=== PATIENT | female | born 1995 | race American Indian/Alaskan Native ===

== ENCOUNTER 2017-01-11 10:49 | Observation (INO) | payer OTHER ==
[2017-01-11 11:38] VITALS: TEMP 99.9
[2017-01-11 12:17] VITALS: RESP 18
[2017-01-11] MEDS ORDERED: Sodium Chloride 0.9% 1,000 ML IV SCH (12:30)
[2017-01-11 13:00] LABS: ADD MANUAL DIFF? NO
[2017-01-11 13:08] LABS: URINE BILIRUBIN NEGATIVE (NEGATIVE); URINE BLOOD NEGATIVE (NEGATIVE); URINE GLUCOSE (UA) NEGATIVE (NEGATIVE); URINE KETONE >=80 mg/dL (NEGATIVE); URINE LEUKOCYTE ESTERASE NEGATIVE Leu/uL (NEGATIVE); URINE PROTEIN TRACE mg/dL (<30 mg/dL); URINE UROBILINOGEN 0.2 E.U./dL (<1 E.U./dL)
[2017-01-11 13:10] LABS: URINE APPEARANCE CLEAR (CLEAR); URINE COLOR YELLOW (YELLOW)
[2017-01-11 13:11] LABS: BASO # 0.01 K/mm3 (0.0-2.0); BASO % 0.1 % (0.0-3.0); EOS % 0.1 % (1.5-5.0); GRAN # 6.39 (1.4-6.5); GRAN % 74.1 % (50.0-68.0); HEMATOCRIT 39.6 % (36.0-48.0); LYMPH # 1.2 (1.2-3.4); LYMPH % 13.3 % (22.0-35.0); MEAN CELL VOLUME 89.2 fL (80.0-105.0); MEAN CORPUSCULAR HEMOGLOBIN 30.6 pg (25.0-35.0); MEAN CORPUSCULAR HGB CONC 34.3 g/dl (31.0-37.0); MEAN PLATELET VOLUME 10.3 fl (7.0-11.0); MONO # 1.1 (0.1-0.6); MONO % 12.4 % (1.0-6.0); PLATELET COUNT 218 10^3/uL (120.0-450.0); RED CELL DISTRIBUTION WIDTH 12.8 % (11.5-14.5); WHITE BLOOD COUNT 8.6 10^3/ul (4.5-11.0)
[2017-01-11 13:17] LABS: ALB/GLOB RATIO 1.2 (1.1-1.8); ALKALINE PHOSPHATASE 64 U/L (38-133); ALT/SGPT 37 U/L (7-56); AST/SGOT 30 U/L (15-39); BILIRUBIN,TOTAL 0.5 mg/dL (0.2-1.3); BLOOD UREA NITROGEN 9 mg/dL (7-21); CALCIUM 8.8 mg/dL (8.4-10.5); CARBON DIOXIDE 25 mmol/L (21-33); CHLORIDE 101 mmol/L (98-107); GFR AFRICAN-AMERICAN > 60; GLUCOSE,RANDOM 88 mg/dL (70-110); SODIUM 135 mmol/L (132-148)
[2017-01-11 13:20] LABS: URINE BACTERIA FEW (NEG); URINE RBC NEGATIVE /hpf (0-2); URINE WBC 0 - 2 /hpf (0-6)
--- NOTE | 2017-01-11 13:23 | ED PDOC ---
Arrival/HPI - General Chief Complaint: Flu-like Symptoms Time Seen by Provider: 01/11/17 12:06 Historian: Patient, Parent - History of Present Illness Narrative History of Present Illness (Text): 01/11/17 13:19 Patient reports 2 days of fever with body aches, chills, and cough. Otherwise: (-) URI symptoms, (-) SOB, (-) chest pain, (-) N/V/D, (-) abdominal pain, (-) flank pain, (-) urinary symptoms, (-) recent travel, (+) sick contacts at school. Of note, mother states that the patient has been c/o fatigue for the past 2 weeks. PMD Hanh Past Medical History - Provider Review Nursing Documentation Reviewed: Yes - Infectious Disease Hx of Infectious Diseases: None - Psychiatric Hx Substance Use: No - Anesthesia Hx Anesthesia: No Hx Anesthesia Reactions: No Hx Malignant Hyperthermia: No Family/Social History - Physician Review Nursing Documentation Reviewed: Yes Family/Social History: No Known Family HX Smoking Status: Never Smoked Hx Alcohol Use: No Frequency of alcohol use: Socially Hx Substance Use: No Allergies/Home Meds Allergies/Adverse Reactions: Allergies No Known Allergies Allergy (Verified 01/11/17 11:38) Review of Systems - Review of Systems Constitutional: Normal, Fatigue, Fevers. absent: Weight Change ENT: Normal. absent: Hearing Changes, Tinnitus Respiratory: Normal, Cough. absent: SOB, Sputum Cardiovascular: Normal. absent: Chest Pain, Palpitations, Edema Gastrointestinal: Normal. absent: Abdominal Pain, Stool Changes, Constipation Musculoskeletal: Normal, Myalgias. absent: Back Pain, Neck Pain Skin: Normal. absent: Rash, Pruritis, Skin Lesions Physical Exam - Physical Exam Narrative Physical Exam (Text): 01/11/17 13:22 GENERAL APPEARANCE: Patient is awake, alert, oriented x 3, in no acute distress. SKIN: Warm, dry; (-) cyanosis, (-) rash. (-) Decubitus Ulcer EYES: (-) conjunctival pallor, (-) scleral icterus, (-) conjunctival hemorrhage. ENMT: Mucous membranes dry. TMs: (-) erythema. Airway patent: (-) stridor. Pharynx: (+) erythema, (-) exudate. NECK: (-) tenderness, (-) stiffness, (-) meningismus, (-) lymphadenopathy. CHEST AND RESPIRATORY: (-) accessory muscle use. Lungs: (-) rales, (-) rhonchi, (-) wheezes, (-) rub; breath sounds equal bilaterally. HEART AND CARDIOVASCULAR: (-) irregularity; (-) murmur, (-) gallop, (-) rub. ABDOMEN AND GI: Soft; (-) tenderness, (-) guarding; (-) organomegaly; (-) mass ; (-) CVA tenderness. EXTREMITIES: (-) deformity; (-) cellulitis, (-) lymphangitis; (-) subungual hemorrhage; (-) edema. NEURO AND PSYCH: Mental status as above; (-) focal findings. Vital Signs Temp Pulse Resp BP Pulse Ox 01/11/17 16:09 76 18 103/58 L 98 01/11/17 13:27 86 18 105/75 99 01/11/17 12:17 90 18 107/78 99 01/11/17 11:32 99.9 F H 106 H 20 99 Medical Decision Making ED Course and Treatment: 01/11/17 13:24 21 yo F c/o 2 days of fever with body aches, chills, and cough. Mother states that the patient has been fatigued, requesting for labs to be drawn. Plan: -- Labs -- IV fluids -- Urinalysis -- TSH -- Rapid flu / Rapid strep / Throat cx -- Toradol -- Reassess and disposition -- Placed in ED obs for further evaluation and treatment - Medication Orders Current Medication Orders: Discontinued Medications Sodium Chloride (Sodium Chloride 0.9%) 1,000 mls @ 1,000 mls/hr IV .Q1H ABIOLA Last Admin: 01/11/17 12:56 Dose: 1,000 MLS/HR eMAR Start Stop Document 01/11/17 12:56 GMD (Rec: 01/11/17 12:56 GMD [facility] [id number]) Intravenous Solution Start Date 01/11/17 Start Time 12:56 End Date 01/11/17 End time 13:56 Total Infusion Time 60 Ketorolac Tromethamine (Toradol) 30 mg IVP STAT STA Stop: 01/11/17 12:21 Last Admin: 01/11/17 12:59 Dose: 30 MG IVP Administration Document 01/11/17 12:59 GMD (Rec: 01/11/17 12:59 GMD [facility] [id number]) Charges for Administration # of IVP Administrations 1 Ondansetron HCl (Zofran Inj) 4 mg IVP STAT STA Stop: 01/11/17 12:21 Last Admin: 01/11/17 12:59 Dose: 4 MG IVP Administration Document 01/11/17 12:59 GMD (Rec: 01/11/17 12:59 GMD [facility] [id number]) Charges for Administration # of IVP Administrations 1 ED OBSERVATION Date of observation admission: 01/11/17 Time of observation admission: 12:18 - Observation admission statement Patient is being placed in observation because:: To observe and monitor patient's symptoms and response to treatment. For IV hydration. - Goals of Observation Goals of observation are:: To check patient's labs and response to treatment. - Progress Note Progress Note: 01/11/17 14:00 Labs reviewed, rapid flu a positive. WBC is within normal limits, CMP and UA is still pending at this time. TSH, rapid strep, throat culture added. On reevaluation patient is resting comfortably in bed in no acute distress. Patient has no other complaints at this time. On exam patient remains awake, alert, oriented 3. Neck is supple. Otherwise exam is unchanged. NS bolus infusing. 01/11/17 15:00 IV fluids infusing at this time. UA : (+) ketones. The rest of the labs reviewed and are within normal limits. On reevaluation, the patient reports that she feels well and has no other complaints at this time. 01/11/17 15:58 Repeat VS : P 76 BP 103/58 R 18 98&RA Based on history, exam and diagnostic results plan will be for outpatient follow -up with PMD. Prescription provided.Patient states she fully agrees with and understands discharge instructions. States that she agrees with the plan and disposition. Verbalized and repeated discharge instructions and plan. I have given the patient opportunity to ask any additional questions. Follow up with primary care physician in 1-2 days without fail. Advised to take medication as prescribed. Return to the emergency room at any time for any new or worsening symptoms. - PA / LATHE WINDER / Resident Statement MD/DO has reviewed & agrees with the documentation as recorded. Disposition/Present on Arrival - Present on Arrival Any Indicators Present on Arrival: No History of DVT/PE: No History of Uncontrolled Diabetes: No Urinary Catheter: No History of Decub. Ulcer: No History Surgical Site Infection Following: None - Disposition Have Diagnosis and Disposition been Completed?: Yes Diagnosis: Influenza, Dehydration Disposition: HOME/ ROUTINE Disposition Time: 16:01 Patient Plan: Discharge Condition: GOOD
[2017-01-11 16:12] VITALS: BP 103/58; PULSE 76; O2SAT 98
== END 2017-01-11 15:57 | disposition home or self-care (01) ==
LOC: EDBD → ED 10:49 → EROBSV 12:18 → ED 16:12
PROVIDERS: ADMIT Student in an Organized Health Care Education/Training Program; ATTEND Student in an Organized Health Care Education/Training Program
DX: J11.1 Influenza due to unidentified influenza virus with other respiratory manifestations (principal); E86.0 Dehydration
CPT/HCPCS: 80053; 81001; 84443; 85025; 87070; 87086; 87430; 87804; 96361; 96374; 96375; 99284; G0378; J1885; J2405